=== PATIENT | female | born 2005 | race Caucasian/White ===

== ENCOUNTER 2023-09-15 11:01 | Emergency (ER) | payer OTHER, SELFPAY ==
--- NOTE | 2023-09-15 11:09 | PC.NURSE ---
Pt called for triage assessment, in the BR vomiting at this time.
[2023-09-15 11:12] VITALS: BP 113/74; PULSE 93; RESP 16; TEMP 37; O2SAT 97; BMI 23.9
--- NOTE | 2023-09-15 11:12 | ED_ITS ---
HPI - Nausea/Vomiting/Diarrhea General Chief complaint: Nausea/Vomiting/Diarrhea Stated complaint: diarrhea vomiting Time Seen by Provider: 09/15/23 11:58 Source: patient Mode of arrival: ambulatory Limitations: no limitations History of Present Illness HPI Narrative: 17 yo female presenting to the ER for evaluation of N/V/D that started at 3am after eating crab last night. Father who ate them has similar symptoms. She is concerned for dehydration. Syncopized this morning and fell to the ground, no injuries. Took Zofran at home and vomited in the bathroom. Has cramping in abd and bilateral arms. Yellow diarrhea, no blood in her bowel movements. LMP 2 weeks ago. MD elicited complaint: nausea, vomiting, diarrhea and abdominal pain (cramping) Onset (ago): hour(s) (started at 3am this morning) Description of diarrhea: mucus (yellow tinted) and watery Associated nausea: Yes Associated abdominal pain: Yes Related Data Previous Rx's Medication Instructions Recorded ondansetron 4 mg disintegrating 4 mg PO Q8H PRN nausea and 09/15/23 tablet vomiting #7 tabs Allergies Allergy/AdvReac Type Severity Reaction Status Date / Time fish derived [FISH] Allergy Unknown ITCHY Verified 09/15/23 11:15 THROAT Review of Systems 2 Review of Systems: Yes all other systems are reviewed and are negative Gastrointestinal: Gastrointestinal: Reports nausea PMFSH Social History Social History Advance Directives: No Advance Directives Information Provided: Yes Physical Exam 2 Vital Signs: Vital Signs: Last Vital Signs Temp 98.6 F 09/15/23 11:12 Pulse 96 09/15/23 14:03 Resp 16 09/15/23 14:02 BP 110/53 L 09/15/23 14:03 Pulse Ox 99 09/15/23 14:02 O2 Del Method Room Air 09/15/23 14:02 BMI result Body Mass Index 23.9 Appearance: Alert. Oriented X3. No acute distress. Head: normocephalic, atraumatic. Eyes: Pupils equal, round and reactive to light. ENT: Pharynx normal. No tonsillar swelling or exudate. Neck: Normal inspection. Neck supple. CVS: Normal heart rate and rhythm. Pulses normal. Respiratory: No respiratory distress. Breath sounds normal. Abdomen: Soft and nontender. +BS x4 Skin: Skin warm and dry. Normal skin color. Normal skin turgor. No rashes. Extremities: No lower extremity edema. No joint swelling. Neuro/psych: Oriented X 3. No motor deficit. No sensory deficit. CN II-XII intact. Normal speech and cognition. Course Course Course Narrative: This is a Rapid Medical Examination (RME) in triage, full HPI, ROS, assessment and plan per primary provider in the Main ED. 17 yo female presenting to the ER for evaluation of N/V/D that started at 3am after eating crab last night. Father who ate them has similar symptoms. She is concerned for dehydration. Syncopized this morning and fell to the ground, no injuries. Took Zofran at home and vomited in the bathroom. Has cramping in abd and bilateral arms. Yellow diarrhea, no blood in her bowel movements. LMP 2 weeks ago. Plan: labs, IVF Reevaluation(s) Reevaluation #1: Patient is getting 2 L of fluid. She is feeling better. Time: 13:22 Medications Administered Discontinued Medications Generic Name Dose Route Start Last Admin Trade Name Vincent PRN Reason Stop Dose Admin Sodium Chloride 1,000 mls @ 999 mls/hr 09/15/23 11:15 09/15/23 13:15 Ns IVCONT 09/15/23 12:15 Infused .Q1H1M OLU Infusion Sodium Chloride 1,000 mls @ 999 mls/hr 09/15/23 12:00 09/15/23 14:35 Ns IV 09/15/23 13:00 Infused .Q1H1M OLU Infusion Ondansetron HCl 4 mg 09/15/23 11:13 09/15/23 12:27 Ondansetron Hcl 4 Mg/2 Ml Vial IVPUSH 09/15/23 11:14 4 mg ONCE ONE Administration Ondansetron HCl 4 mg 09/15/23 11:15 09/15/23 11:17 Ondansetron Odt 4 Mg Tab.Rapdis TRANSLINGU 09/15/23 11:16 4 mg ONCE ONE Administration Medical Decision Making Medical Decision Making MDM Narrative: Amy is a 17 year old female presenting today for evaluation of N/V/D since 3am. Reports that she ate crab last night with her father, who is also experiencing similar symptoms. On presentation, she reports that she feels weak and nauseous. Administered 2 liters of IVF and zofran, to which she reports relief. Still is feeling tired, but improved. She is stable for discharge home. Differential Diagnosis Differential Diagnoses: The differential diagnosis associated with the presentation includes viral gastroenteritis, food poisoning, bacterial gastroenteritis, UTI, , colitis Admission/Observation Consideration of admission/observation: Escalation of care including admission/observation considered Lab Data MDM Lab Attestation statement: I reviewed the patient's lab results. no metabolic derangement 09/15/23 11:25 09/15/23 11:25 Labs: Lab Results 09/15/23 Range/Units 11:25 WBC 9.5 (4.8-10.8) X10*3/uL RBC 5.07 (4.20-5.50) X10*6/uL Hgb 14.8 (12.0-16.0) g/dl Hct 43.8 (37.0-47.0) % MCV 86.4 (80.0-98.0) fL MCH 29.2 (27.0-33.0) pg MCHC 33.8 (31.0-35.0) g/dl RDW 11.9 (11.0-16.0) % Plt Count 267 (160-400) X10*3/uL MPV 9.5 (9.4-12.3) fL Immature Gran % (Auto) 0.1 (0.0-0.4) % Neut % (Auto) 88.1 H (45-73) % Lymph % (Auto) 4.9 L (20-40) % [place] % (Auto) 5.4 (2-11) % Eos % (Auto) 1.2 (0-4) % Baso % (Auto) 0.3 (0-2) % Lymph # (Auto) 0.5 L (1.2-4.9) X10*3/uL [place] # (Auto) 0.5 (0.1-1.2) X10*3/uL Eos # (Auto) 0.1 (0.0-0.4) X10*3/uL Baso # (Auto) 0.0 (0.0-0.2) X10*3/uL Abs Immat Gran (auto) 0.01 (0.00-0.03) X10*3/uL Absolute Neuts (auto) 8.3 (2.0-8.3) x10*3/uL Absolute Nucleated RBC 0.000 (0.0-0.012) X10*3/uL Nucleated RBC % (auto) 0.0 (0.0-0.2) /100WBC Sodium 141 (135-145) mmol/L Potassium 4.2 (3.3-5.1) mmol/L Chloride 108 (96-108) mmol/L Carbon Dioxide 22 (22-29) mmol/L Anion Gap 15 (12-20) BUN 19 H (9-16) mg/dL Creatinine 0.94 (0.5-1.4) mg/dL Estim Creat Clear Calc 79.6 Estimated GFR > 60 Random Glucose 114 (60-115) mg/dL Calcium 10.1 (8.4-10.2) mg/dL Magnesium 2.1 (1.6-2.6) mg/dL Total Bilirubin 1.5 H (0.0-1.0) mg/dL Direct Bilirubin 0.4 (0.0-0.5) mg/dL AST 47 H (5-31) U/L ALT 92 H (0-31) U/L Alkaline Phosphatase 76 (39-117) U/L Total Protein 8.7 H (6.5-8.0) g/dL Albumin 5.0 (3.5-5.0) g/dL Lipase 26 (8-78) U/L External Record Review External record reviewed: Prior outpatient labs and Prior outpatient radiology Prescription Management I considered prescription management with: Pain Medication and Antibiotic Critical Care Time Critical Care Time Critical Care Time: Yes Total Critical Care Time: 32 Attestation: I have personally provided critical care time exclusive of time spent on separately billable procedures. Time includes review of lab data, IVF boluses w/ reassessments of her VS and monitoring for potential decompensation. Intervention performed as documented. Discharge Plan Discharge Clinical Impression: Food poisoning Patient Disposition: Home, Self-Care Instructions: Food Poisoning (ED) Additional Instructions: Treatment is supportive care, symptoms usually resolve on their own in 48-72 hours. Recommend rest and plenty of oral hydration. Stick to a bland diet like soup and toast while you are not feeling well. Take the prescribed medication as needed for nausea. Recommend over the counter Pepto Bismol or Imodium for upset stomach and diarrhea. Follow up with your doctor as needed. If you develop new or worsening symptoms call 911 or come back to the ER for further evaluation. Prescriptions: New ondansetron 4 mg tablet,disintegrating 4 mg PO Q8H PRN (Reason: nausea and vomiting) Qty: 7 0RF Discharge Date/Time: 09/15/23 14:40
--- NOTE | 2023-09-15 11:14 | ECG_ITS ---
Test Reason : syncope Blood Pressure : / mmHG Vent. Rate : 097 BPM Atrial Rate : 097 BPM P-R Int : 122 ms QRS Dur : 072 ms QT Int : 344 ms P-R-T Axes : 010 059 021 degrees QTc Int : 436 ms Normal sinus rhythm Normal ECG When compared with ECG of 27-AUG-2017 03:52, No significant changes seen Referred By: Gayle Winslow Electronically Signed By:JIA HANNAH MD
[2023-09-15] MEDS: Ondansetron ODT 4 MG TAB.RAPDIS TRANSLINGU (11:17)
[2023-09-15 11:30] LABS: MANUAL DIFF FLAG NO
[2023-09-15 11:32] LABS: Basophils Percent Auto 0.3 % (0-2); Eosinophils Absolute Auto 0.1 X10*3/uL (0.0-0.4); Eosinophils Percent Auto 1.2 % (0-4); Hematocrit 43.8 % (37.0-47.0); Hemoglobin 14.8 g/dl (12.0-16.0); Imm Gran Abs Auto 0.01 X10*3/uL (0.00-0.03); Imm Gran Pct Auto 0.1 % (0.0-0.4); Lymphocytes Absolute Auto 0.5 X10*3/uL (1.2-4.9); Lymphocytes Percent Auto 4.9 % (20-40); Mean Corpuscular HGB Conc 33.8 g/dl (31.0-35.0); Mean Corpuscular Hemoglobin 29.2 pg (27.0-33.0); Mean Corpuscular Volume 86.4 fL (80.0-98.0); Mean Platelet Volume 9.5 fL (9.4-12.3); Monocytes Absolute Auto 0.5 X10*3/uL (0.1-1.2); Monocytes Percent Auto 5.4 % (2-11); Neutrophils Absolute Auto 8.3 x10*3/uL (2.0-8.3); Neutrophils Percent Auto 88.1 % (45-73); Platelet Count 267 X10*3/uL (160-400); Red Blood Count 5.07 X10*6/uL (4.20-5.50); Red Cell Distribution Width 11.9 % (11.0-16.0); White Blood Count 9.5 X10*3/uL (4.8-10.8)
[2023-09-15 11:47] LABS: Alanine Aminotransferase 92 U/L (0-31); Alkaline Phosphatase 76 U/L (39-117); Anion Gap 15 (12-20); Aspartate Amino Transferase 47 U/L (5-31); Bilirubin Direct 0.4 mg/dL (0.0-0.5); Bilirubin Total 1.5 mg/dL (0.0-1.0); Blood Urea Nitrogen 19 mg/dL (9-16); Calcium 10.1 mg/dL (8.4-10.2); Carbon Dioxide 22 mmol/L (22-29); Chloride 108 mmol/L (96-108); Creatinine Clr Calc Pharmacy 79.6; Estimated Glomerular Filt Rate > 60; Glucose Random 114 mg/dL (60-115); Magnesium 2.1 mg/dL (1.6-2.6); Potassium 4.2 mmol/L (3.3-5.1); Sodium 141 mmol/L (135-145); Total Protein 8.7 g/dL (6.5-8.0)
[2023-09-15] MEDS: ondansetron HCL 4 MG/2 ML VIAL IVPUSH (12:27)
[2023-09-15] MEDS: 0.9 % Sodium Chloride 1,000 ML 999 ML IVCONT (12:27)
[2023-09-15 12:29] LABS: Lipase 26 U/L (8-78)
[2023-09-15] MEDS: 0.9 % Sodium Chloride 1,000 ML 999 ML IV (13:11)
[2023-09-15 14:02] VITALS: BP 96/58; PULSE 95; RESP 16; O2SAT 99
[2023-09-15 14:03] VITALS: BP 100/54; BP 110/53; PULSE 88; PULSE 96
== END 2023-09-15 14:40 | disposition home or self-care (01) ==
PROVIDERS: Physician Assistant; Emergency Provider Emergency Medicine
DX: A05.9 Bacterial foodborne intoxication, unspecified (principal)
CPT/HCPCS: 36415; 80048; 80076; 83690; 83735; 85025; 93005; 96361; 96374; 99284; J2405

== ENCOUNTER → 2023-09-15 11:14 | Outpatient (BNV) | payer OTHER, SELFPAY | PROVIDERS: Emergency Provider Emergency Medicine; Visit Provider Internal Medicine Cardiovascular Disease | DX: R55 Syncope and collapse (principal) | CPT/HCPCS: 93010 ==

== ENCOUNTER 2023-10-08 13:55 | Emergency (ER) | payer OTHER, SELFPAY ==
--- NOTE | 2023-10-08 14:06 | ED_ITS ---
HPI - General Adult General Chief complaint: Extremity Problem Stated complaint: Numbness/pain both hands Time Seen by Provider: 10/08/23 15:20 Source: patient Mode of arrival: ambulatory Limitations: no limitations History of Present Illness HPI narrative: 18 yo right hand dominant female presents to the ER for evaluation of bilateral hand numbness and cold sensation that comes and goes for the last 2 weeks. It is associated with pains in the forearm, wrists and palms. No specific injuries. 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 Her symptoms are worse in her right hand. She gets numb sensation before the pain starts. No discoloration of hands or fingers. Her mother has antiphospholipid syndrome and she wants to make sure she doesnt have clots in her hands/arms. MD complaint: bilateral hand numbness and pain Onset (ago): week(s) (2) Location: left, right and upper extremity Radiation: distal Severity: moderate Quality: sharp Pain Consistency: intermittent Relieving factors: none Exacerbating factors: none Associated symptoms: denies other symptoms Treatments prior to arrival: none Related Data Previous Rx's ?Medication ?Instructions ?Recorded ondansetron 4 mg disintegrating 4 mg PO Q8H PRN nausea and 09/15/23 tablet vomiting #7 tabs naproxen 500 mg tablet 500 mg PO BID PRN pain #20 tabs 10/08/23 Allergies Allergy/AdvReac Type Severity Reaction Status Date / Time fish derived [FISH] Allergy Unknown ITCHY Verified 10/08/23 14:10 THROAT Review of Systems 2 Review of Systems: Yes all other systems are reviewed and are negative [facility] Social History Social History Advance Directives: No Physical Exam ED Vital Signs: Vital Signs - 24 hr 10/08/23 14:07 10/08/23 17:28 Temperature 98.3 F 98 F Pulse Rate 83 85 Respiratory Rate 16 20 Blood Pressure 121/68 125/86 Pulse Oximetry 99 100 Oxygen Delivery Method Room Air Room Air BMI result Body Mass Index 24.4 Appearance: Alert. Oriented X3. No acute distress. Head: normocephalic, atraumatic. Eyes: Pupils equal, round and reactive to light. ENT: Pharynx normal. No tonsillar swelling or exudate. Neck: Normal inspection. Neck supple. CVS: Normal heart rate and rhythm. Pulses normal. Respiratory: No respiratory distress. Breath sounds normal. Abdomen: Soft and nontender. +BS x4 Skin: Skin warm and dry. Normal skin color. Normal skin turgor. No rashes. Extremities: No lower extremity edema. No joint swelling. Normal inspection of the bilateral forearms, wrists and hands. hands are warm and well perfused with 2+ radial pulses, cap refill <3 seconds. no skin changes. 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 negative tinels signs, positive phalens sign Neuro/psych: Oriented X 3. No motor deficit. No sensory deficit. CN II-XII intact. Normal speech and cognition. Course Course Course Narrative: This is a rapid medical exam: Additional HPI, ROS, PE not included below will be deferred to primary provider. Patient is a 18-year-old female presenting to the ED with complaint of numbness/tingling to bilateral forearms/hands for the past 2 weeks, just below elbows, progressively worsening. Mom has antiphospholipid syndrome, but patient has never been tested for this. 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 No known tick bites. Denies falls or other trauma. Has not taken any Tylenol/motrin but has been taking a baby ASA since sxs started. Medical Decision Making Medical Decision Making [facility] Narrative: 18 yo female presenting with bilateral hand numbness and pains, intermittent for the last 2 weeks. worse in the right hand. repetative movements at school/work and typing frequently. NV intact. no evidence of vascular issue or perfusion issue at this time. positive phalens test indicating possible carpal tunnel syndrome. will place in wrist braces qhs, start NSAIDS, activity modifications. encouarged f/u with pcp and ortho if no improvement with conservative measures. stable for d/c home Differential Diagnosis Differential Diagnoses: The differential diagnosis associated with the presentation includes carpal tunnel syndrome, radiculopathy, reynauds phenomenon, PAD, TIA, vitamin deficiency, anxiety Lab Data [facility] Lab Attestation statement: I reviewed the patient's lab results. 10/08/23 14:30 10/08/23 14:30 Labs: Lab Results 10/08/23 Range/Units 14:30 WBC 5.7 (4.8-10.8) X10*3/uL RBC 4.44 (4.20-5.50) X10*6/uL Hgb 13.0 (12.0-16.0) g/dl Hct 38.4 (37.0-47.0) % MCV 86.5 (80.0-98.0) fL MCH 29.3 (27.0-33.0) pg MCHC 33.9 (31.0-35.0) g/dl RDW 11.7 (11.0-16.0) % Plt Count 258 (160-400) X10*3/uL MPV 9.7 (9.4-12.3) fL Immature Gran % (Auto) 0.2 (0.0-0.4) % Neut % (Auto) 57.6 (45-73) % Lymph % (Auto) 30.7 (20-40) % [place] % (Auto) 8.5 (2-11) % Eos % (Auto) 2.5 (0-4) % Baso % (Auto) 0.5 (0-2) % Lymph # (Auto) 1.7 (1.2-4.9) X10*3/uL [place] # (Auto) 0.5 (0.1-1.2) X10*3/uL Eos # (Auto) 0.1 (0.0-0.4) X10*3/uL Baso # (Auto) 0.0 (0.0-0.2) X10*3/uL Abs Immat Gran (auto) 0.01 (0.00-0.03) X10*3/uL Absolute Neuts (auto) 3.3 (2.0-8.3) x10*3/uL Absolute Nucleated RBC 0.000 (0.0-0.012) X10*3/uL Nucleated RBC % (auto) 0.0 (0.0-0.2) /100WBC Sodium 141 (135-145) mmol/L Potassium 3.6 (3.3-5.1) mmol/L Chloride 107 (96-108) mmol/L Carbon Dioxide 30 H (22-29) mmol/L Anion Gap 8 L (12-20) BUN 16 (9-16) mg/dL Creatinine 0.80 (0.5-1.4) mg/dL Estim Creat Clear Calc 92.7 Estimated GFR > 60 Random Glucose 86 (60-115) mg/dL Calcium 9.6 (8.4-10.2) mg/dL Total Bilirubin 1.3 H (0.0-1.0) mg/dL AST 45 H (5-31) U/L ALT 110 H (0-31) U/L Alkaline Phosphatase 72 (39-117) U/L Total Protein 7.5 (6.5-8.0) g/dL Albumin 4.6 (3.5-5.0) g/dL TSH 1.03 (0.32-4.0) uIU/mL Tests considered The following testing was considered but not selected: xr of the wrist/hands considered Prescription Management I considered prescription management with: Pain Medication Critical Care Time Critical Care Time Critical Care Time: No Discharge Plan Discharge Clinical Impression: Bilateral hand pain, Hand paresthesia Patient Disposition: Home, Self-Care Instructions: Paresthesia (ED) Additional Instructions: your lab workup today was unremarkable recommend wearing the provided wrist braces at night to see if this helps your symptoms take the prescribed anti-inflammatory medication as needed follow up with your PCP if no improvement follow up with Orthopedics/Hand Specialist If you develop new or worsening symptoms call 911 or come back to the ER for further evaluation. Prescriptions: New naproxen 500 mg tablet 500 mg PO BID PRN (Reason: pain) Qty: 20 0RF No Action ondansetron 4 mg tablet,disintegrating 4 mg PO Q8H PRN (Reason: nausea and vomiting) Qty: 7 0RF Referrals: [facility] [Provider Group] (paresthesias in the bilateral hands, R>L) Interventions: ED Discharge Assessment Last Done: 10/08/23 17:28 Discharge Date/Time: 10/08/23 17:30 Print Language: Persian
[2023-10-08 14:07] VITALS: BP 121/68; PULSE 83; RESP 16; TEMP 36.8; O2SAT 99; BMI 24.4
[2023-10-08 14:34] LABS: MANUAL DIFF FLAG NO
[2023-10-08 14:36] LABS: Basophils Percent Auto 0.5 % (0-2); Eosinophils Absolute Auto 0.1 X10*3/uL (0.0-0.4); Eosinophils Percent Auto 2.5 % (0-4); Hematocrit 38.4 % (37.0-47.0); Imm Gran Abs Auto 0.01 X10*3/uL (0.00-0.03); Imm Gran Pct Auto 0.2 % (0.0-0.4); Lymphocytes Absolute Auto 1.7 X10*3/uL (1.2-4.9); Lymphocytes Percent Auto 30.7 % (20-40); Mean Corpuscular HGB Conc 33.9 g/dl (31.0-35.0); Mean Corpuscular Hemoglobin 29.3 pg (27.0-33.0); Mean Corpuscular Volume 86.5 fL (80.0-98.0); Mean Platelet Volume 9.7 fL (9.4-12.3); Monocytes Absolute Auto 0.5 X10*3/uL (0.1-1.2); Monocytes Percent Auto 8.5 % (2-11); Neutrophils Absolute Auto 3.3 x10*3/uL (2.0-8.3); Neutrophils Percent Auto 57.6 % (45-73); Platelet Count 258 X10*3/uL (160-400); Red Blood Count 4.44 X10*6/uL (4.20-5.50); Red Cell Distribution Width 11.7 % (11.0-16.0); White Blood Count 5.7 X10*3/uL (4.8-10.8)
[2023-10-08 15:15] LABS: Alanine Aminotransferase 110 U/L (0-31); Albumin Level 4.6 g/dL (3.5-5.0); Alkaline Phosphatase 72 U/L (39-117); Anion Gap 8 (12-20); Aspartate Amino Transferase 45 U/L (5-31); Bilirubin Total 1.3 mg/dL (0.0-1.0); Blood Urea Nitrogen 16 mg/dL (9-16); Calcium 9.6 mg/dL (8.4-10.2); Carbon Dioxide 30 mmol/L (22-29); Chloride 107 mmol/L (96-108); Creatinine Clr Calc Pharmacy 92.7; Estimated Glomerular Filt Rate > 60; Glucose Random 86 mg/dL (60-115); Potassium 3.6 mmol/L (3.3-5.1); Sodium 141 mmol/L (135-145); Total Protein 7.5 g/dL (6.5-8.0)
[2023-10-08 15:29] LABS: TSH reflex Free T4 1.03 uIU/mL (0.32-4.0)
[2023-10-08 17:28] VITALS: BP 125/86; PULSE 85; RESP 20; TEMP 36.6; O2SAT 100
== END 2023-10-08 17:30 | disposition home or self-care (01) ==
PROVIDERS: Registered Nurse Emergency; Emergency Provider Emergency Medicine
DX: R20.0 Anesthesia of skin (principal); M79.632 Pain in left forearm; M79.631 Pain in right forearm; M79.642 Pain in left hand; M79.641 Pain in right hand; Z79.899 Other long term (current) drug therapy
CPT/HCPCS: 36415; 80053; 84443; 85025; 99283; 99284

== ENCOUNTER 2024-05-04 11:31 | Emergency (ER) | payer OTHER, SELFPAY ==
[2024-05-04 11:37] VITALS: BP 118/73; PULSE 89; RESP 18; TEMP 36.8; O2SAT 98; BMI 23.0
--- NOTE | 2024-05-04 11:37 | ED.GENADULT ---
HPI - General Adult General Chief complaint: Nausea/Vomiting/Diarrhea Stated complaint: vomiting-diarrhea Time Seen by Provider: 05/04/24 12:11 Source: patient and family (Father) Mode of arrival: ambulatory Limitations: no limitations History of Present Illness ED Provider: DR. Craven HPI narrative: a 18-year-old female started with sore throat followed by nausea, vomiting, nonbloody watery diarrhea symptoms started since yesterday, no sick contacts, no recent travel, no suspicion of eating bad foods, no blood in the vomitus or in the diarrhea, no abdominal pain or tenderness discomfort in both lower quadrant of the abdomen, no dysuria, no frequency urination, no vaginal bleed, no chance of being . Passing flatus, never had intra-abdominal surgery in the past. Related Data Previous Rx's ?Medication ?Instructions ?Recorded ondansetron 4 mg disintegrating 4 mg PO Q8H PRN nausea and 09/15/23 tablet vomiting #7 tabs naproxen 500 mg tablet 500 mg PO BID PRN pain #20 tabs 10/08/23 Allergies Allergy/AdvReac Type Severity Reaction Status Date / Time fish derived [FISH] Allergy Unknown ITCHY Verified 05/04/24 11:38 THROAT Review of Systems Review of Systems: All other systems are reviewed and are negative Constitutional: Reports as per HPI and Reports no additional constitutional complaints Eyes: Reports as per HPI and Reports no additional eye complaints Reports system reviewed and no additional complaints, except as documented Cardiovascular: Reports as per HPI and Reports no additional cardiovascular complaints Respiratory: Reports as per HPI and Reports no additional respiratory complaints Gastrointestinal: Reports as per HPI and Reports no additional gastrointestinal complaints Genitourinary: Reports no additional female genitourinary complaints Musculoskeletal: Reports no additional musculoskeletal complaints Skin/Breast: Reports system reviewed and no additional complaints, except as docu Psychiatric: Reports no additional psychiatric complaints Endocrine: Reports no additional endocrine complaints Hematologic/Lymphatic: Reports no additional hematologic/lymphatic complaints Allergic/Immunologic: Reports no additional allergic/immunologic complaints Reports system reviewed and no additional complaints, except as documented and Reports Abnormal speech present [facility] Social History Social History Smoked in Last 30 Days: No Use of substances other than those prescribed or required for medical reasons: No Advance Directives: No Advance Directives Information Provided: Yes Do you have a plan to hurt others: No Plan Patient : No Physical Exam ED Vital Signs: Vital Signs - 24 hr 05/04/24 11:37 05/04/24 11:50 05/04/24 15:06 Temperature 98.3 F 98.1 F Pulse Rate 89 83 84 Respiratory Rate 18 22 H 14 Blood Pressure 118/73 107/70 101/61 Pulse Oximetry 98 100 100 Oxygen Delivery Method Room Air Room Air Room Air BMI result Body Mass Index 23.0 Vital signs have been reviewed and appear to be correct. Blood pressure elevated. Heart rate normal. Respiratory rate normal. Temperature normal. Oxygen saturation normal. Appearance: Alert. Oriented X3. No acute distress. Head: Normal external exam. Normocephalic. Atraumatic. No [place] signs noted. No raccoon eyes noted Eyes: PERRLA. EOMI. Conjunctiva and sclera normal. Eyelids normal. ENT: TM's Normal. Pharynx normal. Uvula midline. Moist mucous membranes. No trismus noted. No drooling noted. No muffled voice noted. Neck: Normal inspection. Neck supple. FROM. No adenopathy. Thyroid Normal. No meningeal signs. No neck mass noted. CVS: Normal heart rate and rhythm. Heart sound normal. No murmurs noted. Pulses normal throughout. Respiratory: No respiratory distress. Painless inspiration. Breath sounds normal. No wheezes/rales/rhonchi noted. Chest nontender. No accessory muscle usage noted or decreased air movement noted. Abdomen: Soft , left lower quadrant tenderness, mild right lower quadrant tenderness, no guarding, no rebound tenderness. Bowel sounds normal in all 4 quadrants. No distention noted. No organomegaly noted. No visible injury noted. Back: No CVA tenderness. Full range of motion noted. Skin: Skin warm and dry. Normal skin color. Normal skin turgor. No rashes/lesions/lacerations noted. Extremities: No lower extremity edema. Extremities exhibit normal range of motion. Extremities nontender. Neuro: Oriented X 3. Cranial nerve exam: II-XII are grossly intact No motor deficit. No sensory deficit. Reflexes normal. Course Course Course Narrative: This is a rapid medical exam performed by James Corral NP: Additional HPI, ROS, PE not included below will be deferred to primary provider. Patient is a 18-year-old female presenting with complaint of sore throat which began yesterday, today developed nausea, vomiting and diarrhea, chills. Plan: strep and viral swabs Reevaluation(s) Reevaluation #1: Feels better able to tolerate p.o. intake patient feels better after IV hydration, nausea vomiting, patient did go to the bathroom or have diarrhea in the last hour overall patient feels better repeat Abdominal exam shows no tenderness, no rebound tenderness, guarding. Time: 15:22 Medications Administered Discontinued Medications Generic Name Dose Route Start Last Admin Trade Name Freq PRN Reason Stop Dose Admin Al Hydroxide/Mg Hydroxide 30 ml 05/04/24 12:24 05/04/24 12:47 Magnesium Hydrox/Alum Hydrox 30 Ml Oral.Susp PO 05/04/24 12:25 30 ml ONCE ONE Administration Famotidine 20 mg 05/04/24 12:24 05/04/24 12:45 Famotidine/Pf 20 Mg/2 Ml Vial IVPUSH 05/04/24 12:25 20 mg ONCE ONE Administration Sodium Chloride 1,000 mls @ 999 mls/hr 05/04/24 12:24 05/04/24 15:03 Ns IV 05/04/24 13:24 Infused .Q1H1M ONE Infusion Loperamide HCl 2 mg 05/04/24 12:24 05/04/24 12:47 Loperamide Hcl 2 Mg Capsule PO 05/04/24 12:25 2 mg ONCE ONE Administration Ondansetron HCl 4 mg 05/04/24 12:24 05/04/24 12:46 Ondansetron Hcl 4 Mg/2 Ml Vial IVPUSH 05/04/24 12:25 4 mg ONCE ONE Administration Medical Decision Making Differential Diagnosis Differential Diagnoses: The differential diagnosis associated with the presentation includes ( Gastroenteritis, poisoning, gastritis, acute appendicitis, colitis, diverticulitis, pancreatitis acute cholecystitis, dehydration, electrolyte derangement, UTI, pyelonephritis.) Admission/Observation Consideration of admission/observation: Escalation of care including admission/observation considered Lab Data MDM Lab Attestation statement: I reviewed the patient's lab results. 05/04/24 12:44 05/04/24 12:44 Labs: Lab Results 05/04/24 05/04/24 05/04/24 Range/Units 12:05 12:35 12:44 WBC 7.5 (4.8-10.8) X10*3/uL RBC 4.64 (4.20-5.50) X10*6/uL Hgb 13.7 (12.0-16.0) g/dl Hct 40.7 (37.0-47.0) % MCV 87.7 (80.0-98.0) fL MCH 29.5 (27.0-33.0) pg MCHC 33.7 (31.0-35.0) g/dl RDW 12.0 (11.0-16.0) % Plt Count 268 (160-400) X10*3/uL MPV 9.7 (9.4-12.3) fL Immature Gran % (Auto) 0.3 (0.0-0.4) % Neut % (Auto) 74.9 H (45-73) % Lymph % (Auto) 17.1 L (20-40) % [place] % (Auto) 5.8 (2-11) % Eos % (Auto) 1.5 (0-4) % Baso % (Auto) 0.4 (0-2) % Lymph # (Auto) 1.3 (1.2-4.9) X10*3/uL [place] # (Auto) 0.4 (0.1-1.2) X10*3/uL Eos # (Auto) 0.1 (0.0-0.4) X10*3/uL Baso # (Auto) 0.0 (0.0-0.2) X10*3/uL Abs Immat Gran (auto) 0.02 (0.00-0.03) X10*3/uL Absolute Neuts (auto) 5.6 (2.0-8.3) x10*3/uL Absolute Nucleated RBC 0.000 (0.0-0.012) X10*3/uL Nucleated RBC % (auto) 0.0 (0.0-0.2) /100WBC Sodium 141 (135-145) mmol/L Potassium 4.0 (3.3-5.1) mmol/L Chloride 106 (96-108) mmol/L Carbon Dioxide 27 (22-29) mmol/L Anion Gap 12 (12-20) BUN 15 (9-16) mg/dL Creatinine 0.89 (0.5-1.4) mg/dL Estim Creat Clear Calc 83.4 Estimated GFR > 60 Random Glucose 98 (60-115) mg/dL Calcium 9.9 (8.4-10.2) mg/dL Total Bilirubin 2.0 H (0.0-1.0) mg/dL Direct Bilirubin 0.4 (0.0-0.5) mg/dL AST 19 (5-31) U/L ALT 16 (0-31) U/L Alkaline Phosphatase 67 (39-117) U/L Total Protein 8.0 (6.5-8.0) g/dL Albumin 5.0 (3.5-5.0) g/dL Lipase 30 (8-78) U/L Urine Color Yellow Urine Appearance Clear Urine pH 6.0 (5.0-9.0) Ur Specific [place] 1.025 (1.005-1.025) Urine Protein Negative (Neg-Trace) mg/dL Urine Glucose (UA) Negative (Negative) mg/dL Urine Ketones Trace (Negative) mg/dL Urine Blood Negative (Negative) Urine Nitrite Negative (Negative) Ur Leukocyte Esterase Small (1+) H (Negative) Urine RBC 0-2 (0-2) /HPF Urine WBC 0-5 (0-5) /HPF Ur Squamous Epith Cells 3-5 (0-2) /HPF Urine Bacteria None Seen (None Seen) Hyaline Casts 0-2 (0-2) /LPF Urine Test NEGATIVE (NEGATIVE) Influenza Type A (PCR) NEGATIVE (Negative) Influenza Type B (PCR) NEGATIVE (Negative) RSV RNA Qual (PCR) NEGATIVE (Negative) SARS-CoV-2 RNA (RT-PCR) NEGATIVE (Negative) S. pyogenes GrpA EDGARD Negative (Negative) Discharge Plan Discharge Clinical Impression: Gastroenteritis Patient Disposition: Home, Self-Care Instructions: Gastroenteritis (ED) Prescriptions: No Action naproxen 500 mg tablet 500 mg PO BID PRN (Reason: pain) Qty: 20 0RF ondansetron 4 mg tablet,disintegrating 4 mg PO Q8H PRN (Reason: nausea and vomiting) Qty: 7 0RF Stand Alone Forms: Work/School Release Print Language: Montserratian
[2024-05-04 11:50] VITALS: BP 107/70; PULSE 83; RESP 22; TEMP 36.7; O2SAT 100
[2024-05-04 12:18] LABS: IDNOW Serial# 58CA691E; Strep A Nucleic Acid Negative (Negative)
[2024-05-04] MEDS: Famotidine/PF 20 MG/2 ML VIAL IVPUSH (12:45)
[2024-05-04] MEDS: 0.9 % Sodium Chloride 1,000 ML 999 ML IV (12:45)
[2024-05-04] MEDS: ondansetron HCL 4 MG/2 ML VIAL IVPUSH (12:46)
[2024-05-04 12:47] LABS: MANUAL DIFF FLAG NO
[2024-05-04] MEDS: Loperamide HCl 2 MG CAPSULE PO (12:47)
[2024-05-04] MEDS: Magnesium Hydrox/Alum Hydrox 30 ML ORAL.SUSP PO (12:47)
[2024-05-04 12:48] LABS: UPreg QC Valid YES
[2024-05-04 12:49] LABS: Basophils Percent Auto 0.4 % (0-2); Eosinophils Absolute Auto 0.1 X10*3/uL (0.0-0.4); Eosinophils Percent Auto 1.5 % (0-4); Hematocrit 40.7 % (37.0-47.0); Hemoglobin 13.7 g/dl (12.0-16.0); Imm Gran Abs Auto 0.02 X10*3/uL (0.00-0.03); Imm Gran Pct Auto 0.3 % (0.0-0.4); Lymphocytes Absolute Auto 1.3 X10*3/uL (1.2-4.9); Lymphocytes Percent Auto 17.1 % (20-40); Mean Corpuscular HGB Conc 33.7 g/dl (31.0-35.0); Mean Corpuscular Hemoglobin 29.5 pg (27.0-33.0); Mean Corpuscular Volume 87.7 fL (80.0-98.0); Mean Platelet Volume 9.7 fL (9.4-12.3); Monocytes Absolute Auto 0.4 X10*3/uL (0.1-1.2); Monocytes Percent Auto 5.8 % (2-11); Neutrophils Absolute Auto 5.6 x10*3/uL (2.0-8.3); Neutrophils Percent Auto 74.9 % (45-73); Platelet Count 268 X10*3/uL (160-400); Red Blood Count 4.64 X10*6/uL (4.20-5.50); White Blood Count 7.5 X10*3/uL (4.8-10.8)
[2024-05-04 12:50] LABS: Appearance Urine Clear; Color Urine Yellow; Glucose Urine UA Negative (Negative); Leukocyte Esterase Urine Small (1+) (Negative); Nitrite Urine Negative (Negative); Specific Gravity - Urine 1.025 (1.005-1.025); UMIC TRIGGER UACC YES; Urine Blood Negative (Negative); Urine Ketones Trace mg/dL (Negative); Urine Pregnancy NEGATIVE (NEGATIVE); Urine Protein Negative (Neg-Trace)
[2024-05-04 13:01] LABS: Bacteria Urine None Seen (None Seen); Hyaline Casts Urine 0-2 /LPF (0-2); RBC Urine 0-2 /HPF (0-2); UACC Culture Trigger YES; WBC Urine 0-5 /HPF (0-5)
[2024-05-04 13:09] LABS: Alanine Aminotransferase 16 U/L (0-31); Alkaline Phosphatase 67 U/L (39-117); Anion Gap 12 (12-20); Aspartate Amino Transferase 19 U/L (5-31); Bilirubin Direct 0.4 mg/dL (0.0-0.5); Blood Urea Nitrogen 15 mg/dL (9-16); Calcium 9.9 mg/dL (8.4-10.2); Carbon Dioxide 27 mmol/L (22-29); Chloride 106 mmol/L (96-108); Creatinine Clr Calc Pharmacy 83.4; Estimated Glomerular Filt Rate > 60; Glucose Random 98 mg/dL (60-115); Lipase 30 U/L (8-78); Sodium 141 mmol/L (135-145)
[2024-05-04 13:17] LABS: Influenza A PCR NEGATIVE (Negative); Influenza B PCR NEGATIVE (Negative); Resp Syncy Virus RNA Qual PCR NEGATIVE (Negative); SARS COV2 PCR INHOUSE NEGATIVE (Negative)
--- NOTE | 2024-05-04 14:00 | PC.NURSE ---
Pt resting quietly watching TV. Pt reports feeling much better from time of arrival. Pt reports she was able to eat some saltines without issue.
[2024-05-04 15:06] VITALS: BP 101/61; PULSE 84; RESP 14; O2SAT 100
[2024-05-04 15:38] VITALS: BP 101/61; PULSE 84; RESP 14; TEMP 36.8; O2SAT 100
== END 2024-05-04 15:47 | disposition home or self-care (01) ==
PROVIDERS: Registered Nurse Emergency; Emergency Provider Emergency Medicine
DX: K52.9 Noninfective gastroenteritis and colitis, unspecified (principal); R11.2 Nausea with vomiting, unspecified; J02.9 Acute pharyngitis, unspecified; Z03.818 Encounter for observation for suspected exposure to other biological agents ruled out
CPT/HCPCS: 0241U; 36415; 80048; 80076; 81001; 81025; 83690; 85025; 87086; 87651; 96361; 96374; 96375; 99284; J2405

== ENCOUNTER 2025-04-22 17:10 | Emergency (ER) | payer OTHER, SELFPAY ==
--- NOTE | ~2025-04-22 | XR_ITS ---
CLINICAL HISTORY: weakness 2 view chest x-ray Comparison: None provided Findings: No consolidation or effusion. Heart size is normal. No acute fracture. IMPRESSION: 1. No acute findings. This document has been electronically signed by: Justin Linn MD on 04/22/2025 18:17:17
[2025-04-22 17:13] VITALS: BP 149/89; PULSE 127; RESP 18; TEMP 37; O2SAT 95; BMI 24.0
--- NOTE | 2025-04-22 17:15 | ED_ITS ---
HPI - General Adult General Chief complaint: ETOH/Substance Use Stated complaint: day 4 detox/unable to eat and drinks/tremors Time Seen by Provider: 04/22/25 21:02 Source: patient Mode of arrival: ambulatory Limitations: no limitations History of Present Illness ED Provider: Dr. Jennifer Licona HPI narrative: Patient comes to the emergency room complaining of feeling dehydrated, nauseous, jittery. Patient states that this is a 4th day that she has not had anything to drink or use any narcotics. Patient states that today she is just looking for symptomatic treatment, getting her hydrated. Patient states that she has not been eating or drinking much because everything makes her feel very nauseous. Patient states that she does not have any body pains at this time. Patient states that she is feels anxious and is very nauseous. Patient states tonight she opened up to her family and her employer, seems that she has good support. Patient denies SI or HI Related Data Previous Rx's ?Medication ?Instructions ?Recorded ondansetron 4 mg disintegrating 4 mg PO Q8H PRN nausea and 09/15/23 tablet vomiting #7 tabs naproxen 500 mg tablet 500 mg PO BID PRN pain #20 t abs 10/08/23 Allergies Allergy/AdvReac Type Severity Reaction Status Date / Time fish derived (FISH) Allergy Unknown ITCHY Verified 04/22/25 17:18 THROAT Review of Systems 2 Review of Systems: Constitutional : No Weight loss, No Fever, No Chills, No Night Sweats, No Fatigue, complaining of generalized malaise, complaining of feeling a bit anxious, jittery ENT/Mouth : No Hearing loss, No Ear Pain, No Nasal Congestion, No Sinus Pain, No Hoarseness, No sore throat, No Rhinorrhea, No Swallowing Difficulty Eyes: No Eye Pain, No Swelling, No Redness, No Foreign Body, No Discharge, No Vision Changes Cardiovascular : No Chest Pain, No SOB, No Dyspnea on Exertion, No Orthopnea, No Edema, No Palpitations Respiratory : No Cough, No Sputum, No Wheezing, No Smoke Exposure, No Dyspnea Gastrointestinal : No Nausea, No Vomiting, No Diarrhea, No Constipation, No abdominal Pain, No Hematochezia, No Melena Genitourinary : no irregular bleeding, No Dysuria, No Urinary Frequency, No Hematuria, No Urinary Incontinence, No Urgency, No Flank Pain, No Urinary Flow Changes, No Hesitancy Musculoskeletal : No joint pain, No Myalgias, No Joint Swelling Skin : No Skin Lesions, No rash Neuro : No Weakness, No Numbness, No Paresthesias, No Loss of Consciousness, No Dizziness, No Headache Psych : Flattening feeling a bit anxious No Depression, No SI/HI/AH/VH, admits it it has been 4 days since she has stopped using narcotics and alcohol Heme/Lymph: No Bruising, No Bleeding,No Lymphadenopathy Endocrine : No Polyuria, No Polydipsia, No Temperature Intolerance [facility] Past Medical History Medical History (Updated 04/24/25 @ 00:00 by Anjana De Luna) Alcohol dependence Opiate dependence Social History Social History Alcohol intake: current Alcohol intake frequency: holidays/special occasions only Smoked in Last 30 Days: Yes Use of substances other than those prescribed or required for medical reasons: Yes Substance Use Type: Hallucinogens, Marijuana, Opiates, Painkillers, Prescription Drugs and Sedatives Substance Use Frequency: Chronic Longstanding Last Used Substance: Days (ago) Any prior treatment program specific to substance use: No Advance Directives: No Advance Directives Information Provided: Yes Physical Exam ED Exam Exam: Appearance: Alert. Oriented X3. Anxious Eyes: Pupils equal, round and reactive to light. ENT: Pharynx normal. Dry oral mucosa Neck: Normal inspection. Neck supple. No lymph nodes noted. No crepitus CVS: Normal heart rate and rhythm. Pulses normal. Normal S1 and S2 Respiratory: No respiratory distress. Breath sounds normal. No Wheezing. No rales Abdomen: Soft and nontender. No rigidity. No distention. Skin: Skin warm and dry. Normal skin color. Normal skin turgor. Extremities: No lower extremity edema. No Lacerations. No Rash Neuro: Oriented X 3. No motor deficit. No sensory deficit. Moving all extremities. No slurred speech. CN 2 through 12 grossly intact Psych: calm, cooperative, anxious Vital Signs: Vital Signs - 24 hr 04/22/25 17:13 04/22/25 20:00 Temperature 98.6 F 98.6 F Pulse Rate 127 H 102 H Respiratory Rate 18 16 Blood Pressure 149/89 H 110/57 L Pulse Oximetry 95 97 Oxygen Delivery Method Room Air Room Air BMI result Body Mass Index 24.0 Course Course Course Narrative: Medical screening exam performed. Please refer to detailed history, exam, evaluation, and management by primary provider. Concern for withdrawal. Last alcohol 04/15/25. Last opiates oxycontin/oxycodone 04/16/25. No IV use. Uses ambien, benadryl with large amounts. JS Medications Administered Discontinued Medications Generic Name Dose Route Start Last Admin Trade Name Vincent PRN Reason Stop Dose Admin Sodium Chloride 1,000 mls @ 999 mls/hr 04/22/25 21:12 04/23/25 00:01 Ns IVCONT 04/22/25 22:12 Infused .Q1H1M ONE Infusion Lorazepam 1 mg 04/22/25 21:12 04/22/25 22:01 Lorazepam 1 Mg Tablet PO 04/22/25 21:13 1 mg ONCE ONE Administration Ondansetron HCl 4 mg 04/22/25 21:12 04/22/25 22:01 Ondansetron Hcl 4 Mg/2 Ml Vial IVPUSH 04/22/25 21:13 4 mg ONCE ONE Administration Medical Decision Making Medical Decision Making [facility] Narrative: No significant abnormality in patient's hematology or chemistry, T bilirubin chronically elevated. No abdominal pain. HCG negative, ETOH negative Chest x-ray negative for any acute abnormality I discussed with the patient that we will help her with symptomatic treatment, we will give her IV fluids, Zofran, Ativan. I offered to the patient started her on methadone and then she can follow-up with the care team/addiction medicine to start her on a program. Also, I offered to the patient to talk to the care team for a detox program. At this time, patient states that she believes that she can not do not her own, she has needs help with the symptoms. Patient declined CARE/addiction medicine consult. As the fluids and the above-mentioned medication, patient feeling much better. Differential Diagnosis Differential Diagnoses: The differential diagnosis associated with the presentation includes (Narcotic dependence, alcohol dependence, anxiety) Admission/Observation Consideration of admission/observation: Escalation of care including admission/observation considered (Given patient's initial presentation and history, observation was considered, Care team/addiction medicine consult was offered but respectfully declined) Lab Data [facility] Lab Attestation statement: I reviewed the patient's lab results. 04/22/25 19:14 04/22/25 19:14 Labs: Lab Results 04/22/25 Range/Units 19:14 WBC 7.0 (4.8-10.8) X10*3/uL RBC 4.82 (4.20-5.50) X10*6/uL Hgb 14.2 (12.0-16.0) g/dl Hct 41.4 (37.0-47.0) % MCV 85.9 (80.0-98.0) fL MCH 29.5 (27.0-33.0) pg MCHC 34.3 (31.0-35.0) g/dl RDW 11.4 (11.0-16.0) % Plt Count 324 (160-400) X10*3/uL MPV 9.5 (9.4-12.3) fL Immature Gran % (Auto) 0.3 (0.0-0.4) % Neut % (Auto) 68.9 (45-73) % Lymph % (Auto) 25.0 (20-40) % Estill % (Auto) 5.1 (2-11) % Eos % (Auto) 0.3 (0-4) % Baso % (Auto) 0.4 (0-2) % Lymph # (Auto) 1.8 (1.2-4.9) X10*3/uL Estill # (Auto) 0.4 (0.1-1.2) X10*3/uL Eos # (Auto) 0.0 (0.0-0.4) X10*3/uL Baso # (Auto) 0.0 (0.0-0.2) X10*3/uL Abs Immat Gran (auto) 0.02 (0.00-0.03) X10*3/uL Absolute Neuts (auto) 4.9 (2.0-8.3) x10*3/uL Absolute Nucleated RBC 0.000 (0.0-0.012) X10*3/uL Nucleated RBC % (auto) 0.0 (0.0-0.2) /100WBC Sodium 140 (135-145) mmol/L Potassium 4.5 (3.3-5.1) mmol/L Chloride 106 (96-108) mmol/L Carbon Dioxide 22 (22-29) mmol/L Anion Gap 17 (12-20) BUN 13 (9-16) mg/dL Creatinine 0.91 (0.5-1.4) mg/dL Estim Creat Clear Calc 80.8 Estimated GFR > 60 Random Glucose 91 (60-115) mg/dL Calcium 10.0 (8.4-10.2) mg/dL Total Bilirubin 1.2 H (0.0-1.0) mg/dL AST 25 (5-31) U/L ALT 16 (0-31) U/L Alkaline Phosphatase 48 (39-117) U/L Total Creatine Kinase 177 H (26-140) U/L Total Protein 8.3 H (6.5-8.0) g/dL Albumin 5.2 H (3.5-5.0) g/dL Lipase 31 (8-78) U/L Beta HCG, Quant < 2 mIU/mL Ethyl Alcohol < 10 mg/dL Independent Interpretation I performed an independent interpretation of an: Plain X-Ray Radiology Impression Discussion of test interpretation with radiology: I have reviewed the radiologist's reading. Radiologist Impression: No consolidation or effusion. Heart size is normal. No acute fracture. Critical Care Time Critical Care Time Critical Care Time: Yes Total Critical Care Time: 35 Attestation: I have personally provided critical care time. Time includes review of lab data, radiology results, discussion with consultants, and monitoring for potential decompensation. Intervention performed as documented. Discharge Plan Discharge Clinical Impression: Opiate dependence, Alcohol dependence, Acute dehydration Patient Disposition: Home, Self-Care Instructions: Alcohol Dependence (ED), Opioid Use Disorder (ED) Additional Instructions: Alcohol use disorder You were seen in the Emergency Department today for treatment of alcohol use disorder.? You may have been given medications to help with your withdrawal symptoms.? Please do not drink alcohol with them. This is very dangerous and can cause respiratory depression or other adverse reactions depending on the medication. If you would like to cut down or stop your alcohol use please consider calling our outpatient Addiction Treatment office:? [facility] (M-F 9a-5p) [address] [place] [phone] You have also been given a list of treatment providers in the area that can assist as well.? If you experience seizures, vomiting blood, black stools, falls, severe headache, chest pain, fevers, trouble breathing, hallucinations or any other concerns you need to call 911 or seek immediate care. Please stay hydrated. Opiate use disorder You were seen in our Emergency Department today for treatment of opiate use disorder. You may have been dosed with medication for opiate use disorder (MOUD) in the form of suboxone or methadone. You may experience feeling some withdrawal symptoms and this is normal. The? dose in the Emergency Department is a starting dose and meant to be titrated up once you follow up with a clinic. Please do not feel discouraged, it is a process. The nurse has reviewed with you where to follow up and what information to bring with you, to continue treatment. You also may have been given naloxone (narcan) to take home with you. This medication is used to potentially treat opiate overdose. If you decide you want to stop or cut down on how much you?re using, you can call or walk into our outpatient Addiction Treatment office: [facility] (M-F 9am-5p) [address] [place] [address], [phone] You may have been provided with safer injection?items, please take time to take care of YOU and your health. Use new supplies whenever possible to lessen the chances of infections and other illnesses.? ?If you need more supplies, please go [facility],? [address] [place] [address] OR you can call or text to coordinate delivery of safer supplies. You were also provided a list of several treatment providers in the area.? If you experience any worsening symptoms you cannot control please return to the ED or call 911. Please follow up at your next appointment. Things to look out for are fevers, chest pain, shortness of breath, severe pain, dizziness, fainting or any other concerns. Prescriptions: No Action naproxen 500 mg tablet 500 mg PO BID PRN (Reason: pain) Qty: 20 0RF ondansetron 4 mg tablet,disintegrating 4 mg PO Q8H PRN (Reason: nausea and vomiting) Qty: 7 0RF Interventions: ED Discharge Assessment Last Done: 04/23/25 00:14 Discharge Date/Time: 04/23/25 00:15 Print Language: Lithuanian
--- NOTE | 2025-04-22 17:16 | ECG_ITS ---
Test Reason : DETOX Blood Pressure : */* mmHG Vent. Rate : 100 BPM Atrial Rate : 100 BPM P-R Int : 110 ms QRS Dur : 66 ms QT Int : 338 ms P-R-T Axes : 11 53 14 degrees QTcB Int : 436 ms Sinus rhythm with short [place] Otherwise normal ECG When compared with ECG of 15-Sep-2023 11:19, No significant change was found Referred By: Parag Godinez Electronically Signed By: Rod Melara
[2025-04-22 19:22] LABS: MANUAL DIFF FLAG NO
--- OUTSIDE RECORDS SUMMARY | 2025-04-22 19:23 | XMS_ITS | Clinical Summary ---
Author Organization [facility] Address [address] [facility] [address] [place] [id number] Phone Care Team Providers Care Supervisor Braiding Name Role Phone Pcp, Unknown Primary Care Provider Unavailabl e Allergies Active Allergy Reactions Criticality Noted Date Comments Fish Containing Products 03/31/2022 COd fish Medications No known medications Active Problems No known active problems Social History Tobacco Use Types Packs/Day Years Used Date Smoking Tobacco: Never Assessed Education Answer Date Recorded Are you interested in more education? Not on danyel e 10/11/2022 Are you concerned about learning? Not on file 10/11/2022 No 10/11/2022 No 10/11/2022 Digital Access Answer Date Recorded No 11/11/2022 No 11/11/2022 Reliable internet access at home? Not on file 11/11/2022 Device with a working camera? Not on file Comments Unknown Sex and Gender Information Value Date Recorded Sex Assigned at Female 03/31/2022 5:20 PM EDT Legal Sex Female 11:34 PM EST Gender Identity Female 03/31/2022 5:20 PM EDT Sexual Orientation Straight 03/31/2022 5: 20 PM EDT Last Filed Vital Signs Vital Sign Reading Time Taken Comments Blood Pressure 116/76 03/31/2022 5:15 PM EDT Pulse 80 03/31/2022 5:15 PM EDT Temperature 36.6 C (97.9 F) 03/31/2022 5:15 PM EDT Respiratory Rate 16 03/31/2022 5:15 PM EDT Oxygen Saturation 97% 03/31/2022 5:15 PM EDT Inhaled Oxygen Concentration - - Weight 52.2 kg (115 lb) 03/31/2022 5:15 PM EDT Height 160 cm (5' 3 ) 03/31/2022 5:15 PM EDT Body Mass Index 20.37 03/31/2022 5:15 PM EDT Plan of Treatment Not on file Medical Devices Not on file Insurance [place] [facility] [place] [address] INSURANCE Care Teams Supervisor Braiding Relationship Specialty Start Date End Date Pcp, Unknown PCP - General 03/31/22 Additional Source Comments The information contained in this document represents components of the legal health record. It is not the complete legal health record.[facility]
--- OUTSIDE RECORDS SUMMARY | 2025-04-22 19:23 | XMS_ITS | Clinical Summary ---
Author Organization [facility] Address [address] [place] [address] Phone Care Team Providers Care Vegetable Farm Worker Name Role Phone Cristofer Harrington MD Unavailable Unavailable Immunizations Immunization Administration Dates Next Due Pfizer Purple Cap SARS-CoV-2 12/26/2020,12/06/19 21 Social History Tobacco Use Types Packs/Day Years Used Date Smoking Tobacco: Never Assessed Comments Unknown Sex and Gender Information Value Date Recorded Sex Assigned at Not on file Legal Sex Female 2:31 AM EDT Gender Identity Not on file Sexual Orientation Not on file Last Filed Vital Signs Vital Sign Reading Time Taken Comments Blood Pressure - - Pulse - - Temperature 36.6 C (97.9 F) 11/26/2020 11:31 AM EDT Respiratory Rate - - Oxygen Saturation - - Inhaled Oxygen Concentration - - Weight 60.2 kg (132 lb 11.5 oz) 022 10:50 AM EST Height 159.8 cm (5' 2.91 ) 08/12/2021 1 0:50 AM EST Body Mass Index 23.57 08/12/2021 10:50 AM EST Plan of Treatment Not on file Care Teams Vegetable Farm Worker Relationship Specialty Start Date End Date Cristofer Harrington MD PCP - Insurance PCP 02/22/19
[2025-04-22 19:38] LABS: Alanine Aminotransferase 16 U/L (0-31); Albumin Level 5.2 g/dL (3.5-5.0); Alkaline Phosphatase 48 U/L (39-117); Anion Gap 17 (12-20); Aspartate Amino Transferase 25 U/L (5-31); Blood Urea Nitrogen 13 mg/dL (9-16); Calcium 10.0 mg/dL (8.4-10.2); Carbon Dioxide 22 mmol/L (22-29); Chloride 106 mmol/L (96-108); Creatinine Clr Calc Pharmacy 80.8; Estimated Glomerular Filt Rate > 60; Lipase 31 U/L (8-78); Potassium 4.5 mmol/L (3.3-5.1); Sodium 140 mmol/L (135-145); Total Protein 8.3 g/dL (6.5-8.0)
[2025-04-22 20:00] VITALS: BP 110/57; PULSE 102; RESP 16; TEMP 37; O2SAT 97
[2025-04-22 20:17] LABS: Hematocrit 41.4 % (37.0-47.0); Hemoglobin 14.2 g/dl (12.0-16.0); Imm Gran Abs Auto 0.02 X10*3/uL (0.00-0.03); Imm Gran Pct Auto 0.3 % (0.0-0.4); Lymphocytes Absolute Auto 1.8 X10*3/uL (1.2-4.9); Mean Corpuscular HGB Conc 34.3 g/dl (31.0-35.0); Mean Corpuscular Hemoglobin 29.5 pg (27.0-33.0); Mean Corpuscular Volume 85.9 fL (80.0-98.0); NRBC Abs Auto 0.000 X10*3/uL (0.0-0.012); NRBC Pct Auto 0.0 /100WBC (0.0-0.2); Platelet Count 324 X10*3/uL (160-400); Red Blood Count 4.82 X10*6/uL (4.20-5.50); White Blood Count 7.0 X10*3/uL (4.8-10.8)
[2025-04-22 20:18] VITALS: PULSE 102
--- NOTE | 2025-04-22 20:34 | PC.NURSE ---
pt a&ox4, respirations even and unlabored. PT resting comfortably in her stretcher reporting self detox x4 days following 9 years of polysubstance, ETOH, and nicotine use. PT reports last BM was x4 days ago and last urinary output x2 days ago, bladder scan displayed 13ml of urine in bladder. PT reports decreased PO intake during detox (x4 days). PT reports joint pain, anxiety, tremors, and suprapubic cramping. PT seeking assistance in staying sober and mitigating symptoms.
[2025-04-23 00:14] VITALS: BP 101/60; PULSE 100; RESP 18; TEMP 36.9; O2SAT 97
== END 2025-04-23 00:15 | disposition home or self-care (01) ==
PROVIDERS: Physician Assistant; Emergency Provider Emergency Medicine; PCP Internal Medicine
DX: E86.0 Dehydration (principal); F10.20 Alcohol dependence, uncomplicated; F11.20 Opioid dependence, uncomplicated
CPT/HCPCS: 36415; 71046; 80053; 80307; 82550; 83690; 84702; 85025; 93005; 96361; 96374; 99284; 99285; J2405

== ENCOUNTER → 2025-04-22 17:16 | Outpatient (BNV) | payer OTHER, SELFPAY | PROVIDERS: Emergency Provider Emergency Medicine; PCP Internal Medicine; Visit Provider Internal Medicine Cardiovascular Disease | DX: R53.1 Weakness (principal) | CPT/HCPCS: 93010 ==

== ENCOUNTER → 2025-04-22 17:16 | Outpatient (BNV) | payer OTHER, SELFPAY | PROVIDERS: Visit Provider Radiology Diagnostic Radiology | DX: R53.1 Weakness (principal) | CPT/HCPCS: 71046 ==

== ENCOUNTER 2025-06-10 16:00 | Emergency (ER) | payer OTHER, SELFPAY ==
--- OUTSIDE RECORDS SUMMARY | 2025-06-09 23:59 | XMS_ITS | Continuity of Care Document ---
Author Organization [facility] lt Address [address] [place] [address]- Care Team Providers Care Mds Rn Name Role Phone Mónica RENTERIA, Sabina Primary Care Physician [phone] Encounter [facility] [place] [place] Date(s): 05/10/25 - 06/09/25 [facility] Adult [address] [place] [address]- Encounter Type: Triage Allergies, Adverse Reactions, Alerts Substance Criticality Severity Reaction Reaction Severity Status Fish 1 High criticality Severe Anaphylaxis A ctive 1Codfish Immunizations Given and Recorded Vaccine Date Status Refusal Reason meningococcal group B vaccine 01/02/21 Recorded Meningococcal Conjugate Vaccine 01/02/21 Recorded Human Papillomavirus Vaccine 01/02/21 Recorded SARS-CoV-2 (COVID-19) mRNA BNT-162b2 vac 12/26/20 Recorded SARS-CoV-2 (COVID-19) mRNA BNT-162b2 vac 12/05/20 Recorded influenza virus vaccine, inactivated 02/20/16 Ochoa rded Medications ethinyl estradiol-etonogestrel 0.015 mg-0.120 mg/24 hours vaginal ring See Instructions, INSERT 1 RING VAGINALLY DIRECTED. REMOVE AFTER 3 WEEKS & WAIT 7 DAYS BEFORE INSERTING A NEW RING, # 3 Unknown, 2 Refills, Maintenance, 04/03/25 11:57:00 AM EDT, [facility], 84, INSERT 1 RING VAGINALLY DIRECTED. REMOVE AFTER 3 WEEKS & WAIT 7 DAYS BEFORE INSERTINGA NEW RING, 160.02, cm, 09/21/24 14:51:00 EDT, Height, 56, kg, 09/14/24 15:22:00 EDT, Dry Weight Start Date: 04/03/25 Status: Ordered Medication Dispense Status: Completed Quantity: 3.0 Unit: Unknown Total Allowed Fills: 1 Fills Dispensed: 0 Lexapro 10 mg oral tablet 1 tablet = 10 mg, By Mouth, Daily in AM, # 30 tablet, 0 Refills, Maintenance, 09/21/24 3:19:00 PM EDT, Tablet, [facility]/pharmacy #[id number], Partial fill upon patient request if the prescription is for a schedule II opioid drug., 160.02, cm, 09/21/24 14:51:00 EDT, Height, 56, kg, 09/14/24 15:22:00 EDT, Dry Weight Start Date: 09/21/24 Stop Date: 10/21/24 Status: Ordered Medication Dispense Status: Completed Quantity: 30.0 Unit: tablet Total Allowed Fills: 1 Fills Dispensed: 0 Problem List Condition Confirmation Course Effective Dates Status Health St atus Informant Abdominal migraine Confirmed Active Adjustment disorder with depressed mood Confirmed Active Bereavement Confirmed Active Irregular menses Confirmed Active Mild intermittent asthma Confirmed Active Stress due to illness of family member Confirmed Active Social History Social History Type Response Sexual Gender identity: Lianet ntifies as female. Gender of partner(s): Male. Smoking Status Never (less than 100 in lifetime) entered on: 09/14/24 Sex Sex Representation Female (finding) Patient Care team information Care Team Personnel Name: Henry Albarado RN Position: [facility] RN Member Role: Primary Care Nurse Name: Sabina Sales MD Position: [facility] Physician - Primary Care Member Role: PCP Address: [address] [place] [address] Adult [facility] Outpatient [place], [place] [address] Telecom: Name: Dori Valencia RN Position: [facility] RN Member Role: Primary Care Nurse Care Team Related Persons Name: MAYI DUARTE Name: MAYI DUARTE Name: RAJAT MARTINEZ Name: BIRGIT MARTINEZ Insurance Providers Guarantor name: RAJAT MARTINEZ Health Plan Information #: 1 Payer: [employer] [place] Payer Identifier: NA Member Number: [id number] Group Number: [id number] Subscriber Identifier: NA Relationship to Subscriber: self Coverage Type: Medicaid (Managed Care) Coverage Verification Date: NA Telecom: NA Address: NA
--- NOTE | ~2025-06-10 | XR_ITS ---
CLINICAL HISTORY: cough 2 view chest x-ray Comparison: Chest x-ray 04/22/2025 Findings: No consolidation or effusion. Normal size heart. No acute fracture. IMPRESSION: 1. No acute findings. This document has been electronically signed by: Andrea White MD on 06/10/2025 21:25:10
[2025-06-10 16:23] VITALS: BP 143/82; PULSE 93; RESP 18; TEMP 36.8; O2SAT 97; BMI 23.7
--- NOTE | 2025-06-10 16:23 | ED_ITS ---
[facility] - General Adult General Chief complaint: Upper Respiratory Symptoms Stated complaint: vomiting, diarrhea, cramping Time Seen by Provider: 06/10/25 20:28 Source: patient Mode of arrival: ambulatory Limitations: no limitations History of Present Illness ED Provider: Dr. Montesinos [facility] narrative: 19-year-old female presented hospital today for cough, nausea, vomiting, body aches sore throat. Patient stated that she has been having diarrhea associated with this as well. She is unable to keep anything down. She is worried that she may be dehydrated. Denies any dysuria Related Data Previous Rx's ?Medication ?Instructions ?Recorded ondansetron 4 mg disintegrating 4 mg PO Q8H PRN nausea and 09/15/23 tablet vomiting #7 tabs naproxen 500 mg tablet 500 mg PO BID PRN pain #20 t abs 10/08/23 loperamide 2 mg capsule (Imodium 2 mg PO QID PRN loose stool #20 06/10/25 A-D) caps ondansetron 4 mg disintegrating 4 mg PO Q8H PRN nausea and 06/10/25 tablet vomiting #14 tabs Allergies Allergy/AdvReac Type Severity Reaction Status Date / Time fish derived (FISH) Allergy Unknown ITCHY Verified 06/10/25 16:25 THROAT Review of Systems 2 Review of Systems: Pertinent review of systems as mentioned in [facility]. All other system otherwise negative. [facility] Past Medical History [facility] Narrative: Medical history as mentioned in [facility] Medical History (Updated 06/10/25 @ 22:22 by Tanya Montesinos DO) Alcohol dependence Opiate dependence Social History Social History Alcohol intake: current Alcohol intake frequency: holidays/special occasions only Substance Use Type: Hallucinogens, Marijuana, Opiates, Painkillers, Prescription Drugs and Sedatives Advance Directives: No Advance Directives Information Provided: No Do you have a plan to hurt others: No Plan Physical Exam ED Exam Exam: General: Pleasant, no distress, interacting appropriately Head: Normacephalic, atraumatic ENT: oral mucosa moist, neck supple, no tracheal deviation Cardiovascular: regular rate, regular rhythm, no murmurs, rubbing, gallops Respiratory: CTAB, no wheeze, rales, rhonchi Gastrointestinal: Soft, non distended, diffuse tenderness, no acute surgical abdomen. Neurological: Awake and alert, no facial droop noted Skin: Warm and dry Psychiatric: Appropriate mood and thoughts Vital Signs: Vital Signs - 24 hr 06/10/25 16:23 Temperature 98.3 F Pulse Rate 93 Respiratory Rate 18 Blood Pressure 143/82 H Pulse Oximetry 97 Oxygen Delivery Method Room Air BMI result Body Mass Index 23.7 Course Course Course Narrative: RME, this is a rapid medical exam performed by Mukul Aponte please refer to primary provider for complete H&P- 19-year-old female presents for evaluation of a sore throat, cough, body aches with nausea and vomiting. Plan for labs and viral swabs. Medications Administered Discontinued Medications Generic Name Dose Route Start Last Admin Trade Name Freq PRN Reason Stop Dose Admin Benzonatate 200 mg 06/10/25 20:57 06/10/25 21:13 Benzonatate 100 Mg Capsule PO 06/10/25 20:58 200 mg ONCE ONE Administration Loperamide HCl 6 mg 06/10/25 20:57 06/10/25 21:13 Loperamide Hcl 2 Mg Capsule PO 06/10/25 20:58 6 mg ONCE ONE Administration Ondansetron HCl 4 mg 06/10/25 20:57 06/10/25 21:13 Ondansetron Odt 4 Mg Tab.Rapdis TRANSLINGU 06/10/25 20:58 4 mg ONCE ONE Administration Medical Decision Making Medical Decision Making [facility] Narrative: 19-year-old female presented hospital today for nausea vomiting diarrhea coughing. I did suspect patient likely has a viral syndrome based on her history and presentation. Patient is not tachycardic blood pressure stable. We will plan to give p.o. Zofran and p.o. Imodium. On reassessment patient is able to hold her p.o. intake. Yara francesca pudding and sandwich was given to the patient. She is able to tolerate it well. We will plan to discharge patient with Zofran Imodium. Work note will be provided. Differential Diagnosis Differential Diagnoses: The differential diagnosis associated with the presentation includes Viral syndrome Lab Data [facility] Lab Attestation statement: I reviewed the patient's lab results. 06/10/25 16:47 06/10/25 16:47 Labs: Lab Results 06/10/25 Range/Units 16:47 WBC 7.7 (4.8-10.8) X10*3/uL RBC 4.73 (4.20-5.50) X10*6/uL Hgb 13.9 (12.0-16.0) g/dl Hct 40.8 (37.0-47.0) % MCV 86.3 (80.0-98.0) fL MCH 29.4 (27.0-33.0) pg MCHC 34.1 (31.0-35.0) g/dl RDW 11.9 (11.0-16.0) % Plt Count 310 (160-400) X10*3/uL MPV 9.7 (9.4-12.3) fL Immature Gran % (Auto) 0.1 (0.0-0.4) % Neut % (Auto) 76.7 H (45-73) % Lymph % (Auto) 15.8 L (20-40) % Parmer % (Auto) 6.5 (2-11) % Eos % (Auto) 0.6 (0-4) % Baso % (Auto) 0.3 (0-2) % Lymph # (Auto) 1.2 (1.2-4.9) X10*3/uL Parmer # (Auto) 0.5 (0.1-1.2) X10*3/uL Eos # (Auto) 0.1 (0.0-0.4) X10*3/uL Baso # (Auto) 0.0 (0.0-0.2) X10*3/uL Abs Immat Gran (auto) 0.01 (0.00-0.03) X10*3/uL Absolute Neuts (auto) 5.9 (2.0-8.3) x10*3/uL Absolute Nucleated RBC 0.000 (0.0-0.012) X10*3/uL Nucleated RBC % (auto) 0.0 (0.0-0.2) /100WBC Sodium 141 (135-145) mmol/L Potassium 3.9 (3.3-5.1) mmol/L Chloride 111 H (96-108) mmol/L Carbon Dioxide 21 L (22-29) mmol/L Anion Gap 13 (12-20) BUN 13 (9-16) mg/dL Creatinine 0.75 (0.5-1.4) mg/dL Estim Creat Clear Calc 98.1 Estimated GFR > 60 Random Glucose 103 (60-115) mg/dL Calcium 9.8 (8.4-10.2) mg/dL Total Bilirubin 0.8 (0.0-1.0) mg/dL AST 19 (5-31) U/L ALT 18 (0-31) U/L Alkaline Phosphatase 61 (39-117) U/L Total Protein 7.8 (6.5-8.0) g/dL Albumin 4.9 (3.5-5.0) g/dL Lipase 30 (8-78) U/L Beta HCG, Quant < 2 mIU/mL Influenza Type A (PCR) NEGATIVE (Negative) Influenza Type B (PCR) NEGATIVE (Negative) RSV RNA Qual (PCR) NEGATIVE (Negative) SARS-CoV-2 RNA (RT-PCR) NEGATIVE (Negative) S. pyogenes GrpA EDGARD Negative (Negative) Discharge Plan Discharge Clinical Impression: Acute viral syndrome Patient Disposition: Home, Self-Care Instructions: Viral Syndrome (ED) Prescriptions: New ondansetron 4 mg tablet,disintegrating 4 mg PO Q8H PRN (Reason: nausea and vomiting) Qty: 14 0RF loperamide [Imodium A-D] 2 mg capsule 2 mg PO QID PRN (Reason: loose stool) Qty: 20 0RF No Action naproxen 500 mg tablet 500 mg PO BID PRN (Reason: pain) Qty: 20 0RF ondansetron 4 mg tablet,disintegrating 4 mg PO Q8H PRN (Reason: nausea and vomiting) Qty: 7 0RF Stand Alone Forms: Work/School Release Print Language: Greenlandic
[2025-06-10 16:53] LABS: MANUAL DIFF FLAG NO
[2025-06-10 16:54] LABS: Hematocrit 40.8 % (37.0-47.0); Hemoglobin 13.9 g/dl (12.0-16.0); Imm Gran Abs Auto 0.01 X10*3/uL (0.00-0.03); Imm Gran Pct Auto 0.1 % (0.0-0.4); Lymphocytes Absolute Auto 1.2 X10*3/uL (1.2-4.9); Mean Corpuscular HGB Conc 34.1 g/dl (31.0-35.0); Mean Corpuscular Hemoglobin 29.4 pg (27.0-33.0); Mean Corpuscular Volume 86.3 fL (80.0-98.0); NRBC Abs Auto 0.000 X10*3/uL (0.0-0.012); NRBC Pct Auto 0.0 /100WBC (0.0-0.2); Platelet Count 310 X10*3/uL (160-400); Red Blood Count 4.73 X10*6/uL (4.20-5.50); White Blood Count 7.7 X10*3/uL (4.8-10.8)
[2025-06-10 17:03] LABS: IDNOW Serial# 16C4AD1C; Strep A Nucleic Acid Negative (Negative)
[2025-06-10 17:14] LABS: Alanine Aminotransferase 18 U/L (0-31); Albumin Level 4.9 g/dL (3.5-5.0); Alkaline Phosphatase 61 U/L (39-117); Anion Gap 13 (12-20); Aspartate Amino Transferase 19 U/L (5-31); Blood Urea Nitrogen 13 mg/dL (9-16); Calcium 9.8 mg/dL (8.4-10.2); Carbon Dioxide 21 mmol/L (22-29); Chloride 111 mmol/L (96-108); Creatinine Clr Calc Pharmacy 98.1; Estimated Glomerular Filt Rate > 60; Lipase 30 U/L (8-78); Potassium 3.9 mmol/L (3.3-5.1); Sodium 141 mmol/L (135-145); Total Protein 7.8 g/dL (6.5-8.0)
[2025-06-10 17:33] LABS: Resp Syncy Virus RNA Qual PCR NEGATIVE (Negative); SARS COV2 PCR INHOUSE NEGATIVE (Negative)
--- OUTSIDE RECORDS SUMMARY | 2025-06-10 20:20 | XMS_ITS | Clinical Summary ---
Author Organization [facility] Address [address] [place] [address] Phone Care Team Providers Care Prevocational/Rehabilitation Counselor Name Role Phone Cristofer Harrington MD Unavailable [...] of Treatment Not on file Care Teams Prevocational/Rehabilitation Counselor Relationship Specialty Start Date End Date Cristofer Harrington MD PCP - Insurance PCP 02/22/19
--- OUTSIDE RECORDS SUMMARY | 2025-06-10 20:20 | XMS_ITS | Clinical Summary ---
Author Organization [facility] Address [address] [place] [id number] Phone Care Team Providers Care Mercerizing Range Controller Name Role Phone Pcp, Unknown Primary Care [...] [place] [facility] [place] [address] [place] [address] INSURANCE Care Teams Mercerizing Range Controller Relationship Specialty Start Date End Date Pcp, Unknown PCP - General 03/31/22 Additional Source Comments The information contained in this document represents components of the legal health record. It is not the complete legal health record.[facility]
[2025-06-10 22:25] LABS: Appearance Urine Clear; Glucose Urine UA Negative (Negative); PH 5.0 (5.0-9.0); Specific Gravity - Urine >= 1.030 (1.005-1.025)
== END 2025-06-10 22:34 | disposition home or self-care (01) ==
PROVIDERS: Physician Assistant; Emergency Provider Student in an Organized Health Care Education/Training Program; PCP Internal Medicine
DX: B34.9 Viral infection, unspecified (principal); R05.9 Cough, unspecified; Z03.818 Encounter for observation for suspected exposure to other biological agents ruled out
CPT/HCPCS: 71046; 80053; 81001; 83690; 84702; 85025; 87637; 87651; 99282; 99283

== ENCOUNTER → 2025-06-10 20:57 | Outpatient (BNV) | payer OTHER, SELFPAY | PROVIDERS: Emergency Provider Student in an Organized Health Care Education/Training Program; PCP Internal Medicine; Visit Provider Radiology Diagnostic Radiology | DX: R05.9 Cough, unspecified (principal) | CPT/HCPCS: 71046 ==